=== PATIENT | female | born 1980 | race Caucasian/White ===

== ENCOUNTER 2018-10-18 21:55 | Emergency (ER) | payer SELFPAY ==
[2018-10-18] MEDS ORDERED: SUBLIMAZE IV NR (22:40)
[2018-10-18] MEDS ORDERED: ZOFRAN IV ONE (22:40)
[2018-10-18] MEDS ORDERED: NACL 0.9% 1000 ML 1,000 ML IV ONE (22:40)
--- NOTE | 2018-10-18 22:44 | Emergency Department Report ---
ED Abdominal Pain HPI - General Chief Complaint: Abdominal Pain Stated Complaint: ABD PAIN Time Seen by Provider: 10/18/18 22:35 Source: patient Mode of arrival: Ambulatory Limitations: No Limitations - History of Present Illness Initial Comments: Patient is a 38 years old female with no significant past medical history. Patient presented to the ER complaining of left flank pain started last night radiated down to her suprapubic area. Patient denied any hematuria but admitted dysuria. Patient denied any nausea or vomiting or diarrhea. Patient also denied any fever or chills. MD Complaint: flank pain -: Last night Location: L flank Radiation: suprapubic Migration to: no migration Severity: moderate Severity scale (0 -10): 7 Quality: sharp Consistency: intermittent Associated Symptoms: denies other symptoms - Related Data Previous Rx's Medication Instructions Recorded Last Taken Type Ketorolac [Toradol] 10 mg PO Q6H PRN #20 tablet 10/19/18 Unknown Rx Tamsulosin [Flomax] 0.4 mg PO QDAY #5 cap 10/19/18 Unknown Rx Allergies Allergy/AdvReac Type Severity Reaction Status Date / Time bupropion [From Wellbutrin] Allergy Rash Verified 10/18/18 22:20 codeine Allergy Hives Verified 10/18/18 22:19 latex Allergy Itching Verified 10/18/18 22:20 Sulfa (Sulfonamide Allergy Hives Verified 10/18/18 22:19 Antibiotics) ED Review of Systems ROS: Stated complaint: ABD PAIN Other details as noted in HPI Comment: All other systems reviewed and negative Constitutional: denies: chills, fever Respiratory: denies: cough, orthopnea, shortness of breath, SOB with exertion, SOB at rest, wheezing Cardiovascular: denies: chest pain, palpitations, dyspnea on exertion Gastrointestinal: abdominal pain. denies: nausea, vomiting, diarrhea, constipation, hematemesis, melena, hematochezia Genitourinary: dysuria Musculoskeletal: back pain Neurological: denies: headache, weakness, numbness, paresthesias, confusion, abnormal gait ED Past Medical Hx - Past Medical History Hx Arthritis: Yes Hx Psychiatric Treatment: Yes (Depression) Additional medical history: Heart Murmur, Bronchitis, Insomnia, Rhinitis, Lactose Intolerance,. Paresthesia of skin - Surgical History Additional Surgical History: X 1, D&C - Social History Smoking Status: Never Smoker - Medications Home Medications: Home Medications Medication Instructions Recorded Confirmed Last Taken Type Ketorolac [Toradol] 10 mg PO Q6H PRN #20 tablet 10/19/18 Unknown Rx Tamsulosin [Flomax] 0.4 mg PO QDAY #5 cap 10/19/18 Unknown Rx ED Physical Exam - General Limitations: No Limitations General appearance: alert, in no apparent distress - Head Head exam: Present: atraumatic, normocephalic, normal inspection - Eye Eye exam: Present: normal appearance - ENT ENT exam: Present: normal exam, normal orophraynx, mucous membranes moist - Neck Neck exam: Present: normal inspection, full ROM. Absent: tenderness, meningismus, lymphadenopathy, thyromegaly - Respiratory Respiratory exam: Present: normal lung sounds bilaterally. Absent: respiratory distress, wheezes, rales, rhonchi, stridor, chest wall tenderness, accessory muscle use, decreased breath sounds, prolonged expiratory - Cardiovascular Cardiovascular Exam: Present: regular rate, normal rhythm, normal heart sounds - GI/Abdominal GI/Abdominal exam: Present: soft, normal bowel sounds. Absent: distended, tenderness, guarding, rebound, rigid, organomegaly, mass, bruit, pulsatile mass, hernia - Extremities Exam Extremities exam: Present: normal inspection, full ROM, normal capillary refill. Absent: tenderness, pedal edema, joint swelling, calf tenderness - Back Exam Back exam: Present: normal inspection, full ROM. Absent: tenderness, CVA tenderness (R), CVA tenderness (L), muscle spasm, paraspinal tenderness, vertebral tenderness, rash noted - Neurological Exam Neurological exam: Present: alert, oriented X3, CN II-XII intact, normal gait, reflexes normal - Skin Skin exam: Present: warm, intact, normal color ED Course Vital Signs 10/18/18 10/18/18 10/18/18 22:01 23:00 23:07 Temperature 97.9 F 98 F Pulse Rate 99 H 91 H Respiratory 18 17 Rate Blood Pressure 145/77 146/75 Blood Pressure 148/83 [Left] O2 Sat by Pulse 100 99 99 Oximetry 10/18/18 10/19/18 10/19/18 23:58 00:00 00:16 Temperature Pulse Rate Respiratory Rate Blood Pressure 146/75 142/87 142/87 Blood Pressure [Left] O2 Sat by Pulse 99 99 99 Oximetry 10/19/18 00:30 Temperature Pulse Rate Respiratory Rate Blood Pressure 142/87 Blood Pressure [Left] O2 Sat by Pulse 99 Oximetry ED Medical Decision Making - Lab Data Result diagrams: 10/18/18 22:37 10/18/18 22:37 - Radiology Data Radiology results: report reviewed Referring Physician: LAZARO CALI Patient Name: GANESH CEE Date of : 1980 Sex: Female Report Date: 2018-10-19 Report Status: Finalized Findings [facility] [address] [place] [address] Cat Scan Report Signed Patient: GANESH CEE MR#: [id number] : 1980 Acct:[id number] Age/Sex: 38 / F ADM Date: 10/18/18 Loc: ED Attending Dr: Ordering Physician: LAZARO CALI Date of Service: 10/18/18 Procedure(s): CT abdomen pelvis wo con Accession Number(s): [id number] cc: LAZARO CALI FINAL REPORT EXAM: CT ABDOMEN PELVIS WO CON HISTORY: left flank pain TECHNIQUE: Helical CT scan through the abdomen and pelvis without contrast. Images are reconstructed in the sagittal and coronal planes. PRIORS: None. FINDINGS: Solid organ and bowel evaluation is limited without intravenous contrast. Bowel evaluation is limited without oral contrast. The lung bases are clear. The liver, gallbladder, pancreas, spleen and adrenal glands appear normal. There is a 2 mm stone in the lower pole of the left kidney. Otherwise, the kidneys appear grossly normal. There is no hydronephrosis or ureterolithiasis. There are multiple phleboliths in the pelv is. There are calcifications in the uterus most likely representing calcified uterine fibroids. The ovaries are not discretely identified. The stomach appears grossly within normal limits. There are no abnormally dilated loops of bowel or acute inflammatory changes. A normal-appearing appendix is identified. The abdominal aorta has a normal diameter. The bones and subcutaneous soft tissues are unremarkable for age. IMPRESSION: 1. 2 mm stone in the lower pole of the left kidney. No hydronephrosis or ureterolithiasis. 2. Otherwise, no acute findings in the abdomen/pelvis 3. Calcified uterine fibroids. Transcribed By: MARIANELA Dictated By: DASHAWN MEDINA MD Electronically Authenticated By: DASHAWN MEDINA MD Signed Date/Time: 10/19/1831 DD/ TD/TT: 10/19/1833 - Medical Decision Making Patient is a 38 years old female with no significant past medical history. Patient presented to the ER complaining of left flank pain started last night radiated down to her suprapubic area. Patient denied any hematuria but admitted dysuria. Patient denied any nausea or vomiting or diarrhea. Patient also denied any fever or chills. Patient and have found to have a 2 mm lower pole of the left kidney stone. No hydronephrosis. Patient stated that she is feeling much better. I advised patient to follow up is Dr. Griffin and to follow his heart primary care physician in the next 2-3 days. Critical care attestation.: If time is entered above; I have spent that time in minutes in the direct care of this critically ill patient, excluding procedure time. ED Disposition Clinical Impression: Abdominal pain, Kidney stone on left side Disposition: - TO HOME OR SELFCARE Is pt being admited?: No Condition: Stable Instructions: Kidney Stones (ED), Abdominal Pain (ED) Prescriptions: Ketorolac [Toradol] 10 mg PO Q6H PRN #20 tablet PRN Reason: Pain Tamsulosin [Flomax] 0.4 mg PO QDAY #5 cap Referrals: NUPUR GRIFFIN MD [Staff Physician] - 3-5 Days
[2018-10-18 22:46] LABS: Basophils # (Auto) 0.1 K/mm3 (0.0-0.1); Basophils % (Auto) 0.7 % (0.0-1.8); Eosinophils # (Auto) 0.1 K/mm3 (0.0-0.4); Hematocrit 39.5 % (30.3-42.9); Lymphocytes # (Auto) 3.5 K/mm3 (1.2-5.4); Lymphocytes % (Auto) 47.1 % (13.4-35.0); Mean Corpuscular HGB Conc 33 % (30-34); Mean Corpuscular Volume 90 fl (79-97); Monocytes # (Auto) 0.7 K/mm3 (0.0-0.8); Monocytes % (Auto) 9.8 % (0.0-7.3); Platelet Count 323 K/mm3 (140-440); Red Blood Count 4.37 M/mm3 (3.65-5.03); Red Cell Distribution Width 14.9 % (13.2-15.2)
[2018-10-18] MEDS ORDERED: SUBLIMAZE ONE (23:01)
[2018-10-18 23:08] LABS: BUN/Creatinine Ratio 21; Blood Urea Nitrogen 17 mg/dL (7-17); Calcium 9.4 mg/dL (8.4-10.2); Hemolysis Index 10
[2018-10-18 23:11] LABS: Bilirubin,Urine NEG (Negative); Blood,Urine NEG (Negative); Color,Urine Yellow (Yellow); Mucus,Urine FEW /HPF; Protein,Urine <15 mg/dL mg/dL (Negative); Urobilinogen,Urine < 2.0 mg/dL (<2.0)
--- NOTE | 2018-10-19 00:32 | Cat Scan Report ---
FINAL REPORT EXAM: CT ABDOMEN PELVIS WO CON HISTORY: left flank pain TECHNIQUE: Helical CT scan through the abdomen and pelvis without contrast. Images are reconstructed in the sagittal and coronal planes. PRIORS: None. FINDINGS: Solid organ and bowel evaluation is limited without intravenous contrast. Bowel evaluation is limited without oral contrast. The lung bases are clear. The liver, gallbladder, pancreas, spleen and adrenal glands appear normal. There is a 2 mm stone in the lower pole of the left kidney. Otherwise, the kidneys appear grossly nor mal. There is no hydronephrosis or ureterolithiasis. There are multiple phleboliths in the pelvis. There are calcifications in the uterus most likely representing calcified uterine fibroids. The ovari es are not discretely identified. The stomach appears grossly within normal limits. There are no abnormally dilated loops of bowel or acute inflammatory changes. A normal-appearing appe ndix is identified. The abdominal aorta has a normal diameter. The bones and subcutaneous soft tissues are unremarkable for age. IMPRESSION: 1. 2 mm stone in the lower pole of the left kidney. No hydronephrosis or ureterolithiasis. 2. Otherwise, no acute findings in the abdomen/pelvis 3. Calcified uterine fibroids.
[2018-10-19 00:35] VITALS: BP 142/87
== END 2018-10-19 01:31 | disposition home or self-care (01) ==
LOC: ED 21:55
DX: N20.0 Calculus of kidney (principal); M19.90 Unspecified osteoarthritis, unspecified site; F32.9 Major depressive disorder, single episode, unspecified; Z88.8 Allergy status to other drugs, medicaments and biological substances; Z88.5 Allergy status to narcotic agent; Z91.040 Latex allergy status; Z88.2 Allergy status to sulfonamides
CPT/HCPCS: 36415; 74176; 80048; 81001; 84703; 85025; 96374; 96375; 99284; J2405; J3010; J7030